=== PATIENT | female | born 1965 | race Hispanic/Latino ===

== ENCOUNTER → 2017-11-20 | Outpatient (CLI) | payer BC ==
--- NOTE | 2017-11-20 11:53 | Diagnostic Imaging Report ---
PROCEDURE:HIP LEFT 2-3 VW (+/- PELVIS) COMPARISON:None. INDICATIONS:HIP PAIN FINDINGS: BONES: Normal mineralization. No acute fracture or dislocation. Joint spaces are within normal limits. SOFT TISSUES:Negative. OTHER:Negative. CONCLUSION: No acute fracture or dislocation of the left hip. Dictated by: Nato Eller M.D. on 11/20/2017 at 11:55 Electronically approved by: Nato Eller M.D. on 11/20/2017 at 11:55
--- NOTE | 2017-11-20 12:50 | Diagnostic Imaging Report ---
PROCEDURE:X-RAY LUMBAR SPINE, 3 VIEWS COMPARISON:None available. INDICATIONS:LOWER BACK PAIN FINDINGS: There are 5 lumbar-type vertebral bodies. The vertebral bodies are well-aligned without evidence of spondylolisthesis. Vertebral body heights are maintained. There are no fractures, lytic or blastic lesions. Mild L5-S1 disc space narrowing, otherwise disc-space heights are well-maintained. L5-S1 facet arthropathy. The sacroiliac joints are unremarkable. CONCLUSION: No acute lumbar spine abnormality. Mild L5-S1 degenerative changes and facet arthropathy. Dictated by: Nato Eller M.D. on 11/20/2017 at 12:52 Electronically approved by: Nato Eller M.D. on 11/20/2017 at 12:52
== END ==
LOC: RAD 10:12
PROVIDERS: ATTEND Internal Medicine
DX: M54.5 Low back pain (principal); M16.12 Unilateral primary osteoarthritis, left hip
CPT/HCPCS: 72100

== ENCOUNTER 2022-09-15 18:30 | Emergency (ER) | payer BC, OTHER ==
[~2022-09-15] VITALS: Ht 157.5 cm; Wt 78.0 kg
[2022-09-15 19:24] LABS: BASOPHILS % 0.3 % (0.0-1.0); EOSINOPHILS # (AUTO) 0.1 (0.0-0.4); EOSINOPHILS % 1.9 % (0.0-6.0); HEMATOCRIT 40.4 % (34.2-44.1); HEMOGLOBIN 13.4 g/dL (12.0-16.0); LYMPHOCYTES # (AUTO) 1.9 (1.0-3.2); MEAN CORPUSCULAR HGB CONC 33.2 g/dL (31-35); MEAN CORPUSCULAR VOLUME 90.4 fL (81-99); MONOCYTES # (AUTO) 0.4 (0.2-0.8); MONOCYTES % 5.8 % (4.4-11.3); NEUTROPHILS % 66.9 % (38.7-80.0); PLATELET COUNT 260 x10e3/uL (140-360); RED BLOOD COUNT 4.47 x10e6/uL (3.6-5.1)
[2022-09-15 19:48] LABS: ALANINE AMINOTRANSFERASE 15 IU/L (0-55); ALBUMIN 4.2 g/dL (3.5-5.0); ALBUMIN/GLOBULIN RATIO 1.1 (0.8-2.0); ALKALINE PHOSPHATASE 68 IU/L (40-150); ANION GAP 14.8 mmol/L (8-16); BLOOD UREA NITROGEN 19 mg/dL (7-26); BUN/CREATININE RATIO 22 (6-25); CALCIUM 9.5 mg/dL (8.4-10.2); CARBON DIOXIDE 23 mmol/L (22-29); CHLORIDE 106 mmol/L (98-107); CREATINE KINASE 127 IU/L (29-168); CREATININE, SERUM 0.85 mg/dL (0.57-1.11); GLUCOSE 112 mg/dL (74-118); POTASSIUM 3.8 mmol/L (3.5-5.1); SODIUM 140 mmol/L (136-145)
[2022-09-15 20:43] LABS: FREE THYROXINE INDEX 2.3029 (1.4-3.8); THYROID STIMULATING HORMONE 0.367 uIU/mL (0.350-4.940)
[2022-09-15 20:59] VITALS: BP 114/87
== END 2022-09-15 21:11 | disposition home or self-care (01) ==
LOC: ER 18:48
DX: R00.2 Palpitations (principal); R07.9 Chest pain, unspecified; R94.31 Abnormal electrocardiogram [ECG] [EKG]
CPT/HCPCS: 36415; 71045; 80053; 82550; 82553; 84436; 84443; 84479; 84484; 85025; 85379; 93005; 99284